=== PATIENT | male | born 1955 | race Caucasian/White ===

== ENCOUNTER 2023-10-26 09:05 | Outpatient (CLI) | payer MEDICARE, BC | END 2023-10-26 09:06 | disposition home or self-care (01) | LOC: CSHSPEC 09:05 | PROVIDERS: ATTEND Family Medicine | DX: Z01.818 Encounter for other preprocedural examination (principal); M47.26 Other spondylosis with radiculopathy, lumbar region; Z95.0 Presence of cardiac pacemaker | CPT/HCPCS: 71045; 72100; 72148 ==